=== PATIENT | female | born 1980 | race African-American/Black ===

== ENCOUNTER 2018-01-13 17:42 | Emergency (ER) | payer MEDICAID ==
[~2018-01-13] VITALS: Ht 170.2 cm; Wt 70.3 kg
[~2018-01-13 17:42] MED LIST: CYCLOBENZAPRINE10 MG ORAL; IBUPROFEN600 MG ORAL; KEFLEX500 MG ORAL; ZOFRAN8 MG ORAL
[2018-01-13] MEDS ORDERED: AMOXIL250 MG ORAL (17:53)
[2018-01-13 18:06] VITALS: BP 126/82
[2018-01-13] MEDS ORDERED: Bacitracin Oint UD TOPIC ONE (18:30)
[2018-01-13 19:41] VITALS: BP 126/82
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
[2018-01-13] MEDS ORDERED: LIDODERM700 M1 TOPIC (19:44)
[2018-01-13] MEDS ORDERED: BACITRACIN-P28.35 GM TP (19:44)
[2018-01-13] MEDS ORDERED: ROBAXIN500 MG PO (19:44)
[2018-01-13] MEDS ORDERED: TYLENOL EXTRA500 MG ORAL (19:44)
--- NOTE | 2018-01-14 10:54 | Diagnostic Imaging Report ---
Indication: Finger pain Technique: 3 views of the left index finger Comparison: none Findings: No acute fractures. No dislocations. The joint spaces are preserved. No radiopaque foreign body Impression: Negative
--- NOTE | 2018-01-14 10:55 | Diagnostic Imaging Report ---
Indications: Left humerus pain Technique: Two views of the left humerus Comparison: None Findings: No acute fractures. No dislocations. The joint spaces are preserved. No radiopaque foreign body Impression: Negative
== END 2018-01-13 19:41 | disposition home or self-care (01) ==
LOC: EMR 18:25
DX: S16.1XXA Strain of muscle, fascia and tendon at neck level, initial encounter (principal); S50.02XA Contusion of left elbow, initial encounter; S40.022A Contusion of left upper arm, initial encounter; S10.81XA Abrasion of other specified part of neck, initial encounter; S10.91XA Abrasion of unspecified part of neck, initial encounter; V43.52XA Car driver injured in collision with other type car in traffic accident, initial encounter; Y92.410 Unspecified street and highway as the place of occurrence of the external cause; M62.838 Other muscle spasm
CPT/HCPCS: 99284

== ENCOUNTER 2018-03-15 12:34 | Emergency (ER) | payer MEDICAID ==
[~2018-03-15] VITALS: Ht 172.7 cm; Wt 72.6 kg
[~2018-03-15 12:34] MED LIST changes: +AMOXIL250 MG ORAL; +BACITRACIN-P28.35 GM TP; +LIDODERM700 M1 TOPIC; +ROBAXIN500 MG PO; +TYLENOL EXTRA500 MG ORAL
[2018-03-15] MEDS ORDERED: IRON325 M1 PO (12:46)
[2018-03-15 12:53] VITALS: BP 122/81
[2018-03-15] MEDS ORDERED: Naproxen 500mg tab ORAL ONE (13:15)
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
[2018-03-15] MEDS ORDERED: LIDOCAINE HC28.35 GM TP (14:02)
[2018-03-15] MEDS ORDERED: ROBAXIN500 MG PO (14:02)
[2018-03-15] MEDS ORDERED: NAPROXEN500 M1 ORAL (14:02)
[2018-03-15 14:15] VITALS: BP 122/81
== END 2018-03-15 14:15 | disposition home or self-care (01) ==
LOC: EMR 13:19
DX: M54.5 Low back pain (principal)
CPT/HCPCS: 99283

== ENCOUNTER 2018-05-18 19:53 | Emergency (ER) | payer MEDICAID ==
[~2018-05-18] VITALS: Ht 172.7 cm; Wt 72.1 kg
[~2018-05-18 19:53] MED LIST changes: +IRON325 M1 PO; +LIDOCAINE HC28.35 GM TP; +NAPROXEN500 M1 ORAL
[2018-05-18] MEDS ORDERED: NKM (19:58)
[2018-05-18 20:00] VITALS: BP 138/86
--- NOTE | 2018-05-18 20:23 | Emergency Room Report ---
History of Present Illness General Chief Complaint: Generalized Weakness Source: Patient Present Illness HPI Patient presents with several days of feeling unsteady on her feet. She feels very tired and run down. She's been told she has anemia. In addition to that she's been having some fevers. Her daughter recently was treated for middle ear infection. She denies any nausea vomiting diarrhea dysuria. Her last period was abnormal. She had two menstruations in the month. She stopped bleeding on May 15. Her menstruation was lite. Occasionally her menstruations have been heavy. She's not taking her medication for her anemia. The patient started new job. It's 6 days a week. 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 She states it's hot where she works. It's been stressful as she's working a tremendous amount. She has insomnia and gets about 2 hours of sleep. She has taken Motrin PM without help. At work she felt transiently off balance yesterday. The patient denies chest pain, dyspnea, edema, calf swelling. No ear pain. She's recently tested for diabetes which was excluded. Lives with daughter and boyfriend. No violence or abuse. She feels safe. Not know if thyroid abnormal. Allergies: Coded Allergies: No Known Allergies (Unverified , 08/21/12) Patient History Past Medical History: see triage record Social History: Reports: alcohol use - last January 19; Denies: smoking, drug use Social History Narrative working, has daughter Last Menstrual Period: 05/09/18 Reviewed Nursing Documentation: PMH: Agreed; PSxH: Agreed Nursing Documentation-PM Past Medical History: No History, Except For Hx Cardiac Problems: No - anemia Review of Systems All Other Systems: negative except mentioned in HPI Physical Exam Vital Signs Date Time Temp Pulse Resp B/P (MAP) Pulse Ox O2 Delivery O2 Flow Rate FiO2 05/18/18 19:55 98.1 69 18 140/90 99 Room Air Sp02 EP Interpretation: reviewed, normal General Appearance: well appearing, no apparent distress, GCS 15 Head: normocephalic Eyes: bilateral eye normal inspection, bilateral eye PERRL ENT: moist mucus membranes Neck: supple, thyroid normal Respiratory: lungs clear, normal breath sounds Cardiovascular #1: regular rate, rhythm Cardiovascular #2: 2+ radial (R) Gastrointestinal: normal inspection, normal bowel sounds, non tender, no mass, non-distended Genitourinary: no CVA tenderness Musculoskeletal: back normal, gait/station normal, normal range of motion Neurologic: alert, oriented x3, power plant installer III-XII nml as tested - grossly, motor strength/tone normal, DTRs symmetric, sensory intact, cerebellar normal, normal gait, speech normal Psychiatric: mood/affect normal - slight depresion, no suicidal/homicidal ideation Skin: warm/dry, other - min pallor Medical Decision Making Diagnostic Impression: Primary Impression: UTI (urinary tract infection) Qualified Codes: N30.00 - Acute cystitis without hematuria Additional Impressions: Hypokalemia Stress ER Course Patient presents with dizziness and fevers. Differential includes viral syndrome, anemia, dehydration, middle ear infection amongst others. She'll be evaluated with labs which will include test and thyroid function tests. She'll be treated with IV hydration. The fact her daughter was ill suggests possible infectious source. Based on exam and VS, doubt PE. Labs with normal WBC. H/H slightly low. K low. UA with pyuria. When told about the results, she states her potassium is usually low. Denies diuretics. States does eat bananas. Potassium and macrobid given. Discussed with patient regarding stress and insomnia. Improved with treatment. Patient stable for outpatient observation and treatment. Laboratory Tests Test 05/18/18 20:42 White Blood Count 7.5 K/UL (4.8-10.8) Red Blood Count 4.22 M/UL (4.20-5.40) Hemoglobin 9.6 G/DL (12.0-16.0) L Hematocrit 31.9 % (37.0-47.0) L Mean Corpuscular Volume 76 FL (80-99) L Mean Corpuscular Hemoglobin 22.8 PG (27.0-31.0) L Mean Corpuscular Hemoglobin Concent 30.2 G/DL (32.0-36.0) L Red Cell Distribution Width 15.2 % (11.6-14.8) H Platelet Count 237 K/UL (150-450) Mean Platelet Volume 8.0 FL (6.5-10.1) Neutrophils (%) (Auto) 63.1 % (45.0-75.0) Lymphocytes (%) (Auto) 28.2 % (20.0-45.0) Monocytes (%) (Auto) 6.5 % (1.0-10.0) Eosinophils (%) (Auto) 1.4 % (0.0-3.0) Basophils (%) (Auto) 0.8 % (0.0-2.0) Urine Color Yellow Urine Appearance Slightly cloudy Urine pH 5 (4.5-8.0) Urine Specific [place] 1.025 (1.005-1.035) Urine Protein 1+ (NEGATIVE) H Urine Glucose (UA) Negative (NEGATIVE) Urine Ketones Negative (NEGATIVE) Urine Blood 3+ (NEGATIVE) H Urine Nitrite Negative (NEGATIVE) Urine Bilirubin Negative (NEGATIVE) Urine Urobilinogen Normal MG/DL (0.0-1.0) Urine Leukocyte Esterase 3+ (NEGATIVE) H Urine RBC 2-4 /HPF (0 - 2) H Urine WBC 20-30 /HPF (0 - 2) H Urine Squamous Epithelial Cells Moderate /LPF (NONE/OCC) H Urine Bacteria Few /HPF (NONE) Urine HCG, Qualitative Negative (NEGATIVE) Sodium Level 138 MMOL/L (136-145) Potassium Level 3.1 MMOL/L (3.5-5.1) L Chloride Level 103 MMOL/L (98-107) Carbon Dioxide Level 28 MMOL/L (21-32) Anion Gap 7 mmol/L (5-15) Blood Urea Nitrogen 10 mg/dL (7-18) Creatinine 0.9 MG/DL (0.55-1.30) Estimate Glomerular Filtration Rate > 60 mL/min (>60) Glucose Level 93 MG/DL (74-106) Calcium Level 8.7 MG/DL (8.5-10.1) Total Bilirubin 0.1 MG/DL (0.2-1.0) L Aspartate Amino Transferase (AST) 21 U/L (15-37) Alanine Aminotransferase (ALT) 14 U/L (12-78) Alkaline Phosphatase 62 U/L (46-116) Total Protein 8.9 G/DL (6.4-8.2) H Albumin 3.6 G/DL (3.4-5.0) Globulin 5.3 g/dL Albumin/Globulin Ratio 0.7 (1.0-2.7) L Lipase 96 U/L (73-393) Thyroid Stimulating Hormone (TSH) 1.285 uiU/mL (0.358-3.740) Last Vital Signs Date Time Temp Pulse Resp B/P (MAP) Pulse Ox O2 Delivery O2 Flow Rate FiO2 05/18/18 22:08 98.1 72 18 138/86 99 Room Air Status: improved Disposition: HOME, SELF-CARE Condition: Improved Scripts Potassium Chloride* (K-DUR*) 20 Meq Tab.er.prt 20 MEQ ORAL DAILY, #7 TAB 0 Refills Prov: Aurelio Topete MD 05/18/18 Nitrofurantoin Monohyd/M-Cryst* (MACROBID 100 MG*) 100 Mg Capsule 100 MG ORAL EVERY 12 HOURS, #14 CAP Prov: Aurelio Topete MD 05/18/18 Aurelio Topete MD May 18, 2018 20:23
[2018-05-18 20:53] LABS: APPEARANCE,URINE SLIGHTLY CLOUDY; BILIRUBIN, URINE NEGATIVE (NEGATIVE); GLUCOSE, URINE (UA) NEGATIVE (NEGATIVE); KETONES,URINE NEGATIVE (NEGATIVE); LEUKOCYTE ESTERASE ,URINE 3+ (NEGATIVE); NITRITE,URINE NEGATIVE (NEGATIVE); PH,URINE 5 (4.5-8.0); PROTEIN,URINE 1+ (NEGATIVE); UROBILINOGEN,URINE NORMAL MG/DL (0.0-1.0)
[2018-05-18 20:56] LABS: BASOPHILS % (AUTO) 0.8 % (0.0-2.0); EOSINOPHILS % (AUTO) 1.4 % (0.0-3.0); HEMATOCRIT 31.9 % (37.0-47.0); HEMOGLOBIN 9.6 G/DL (12.0-16.0); LYMPHOCYTES % (AUTO) 28.2 % (20.0-45.0); MEAN CORPUSCULAR VOLUME 76 FL (80-99); MONOCYTES % (AUTO) 6.5 % (1.0-10.0); NEUTROPHILS % (AUTO) 63.1 % (45.0-75.0); PLATELET COUNT 237 K/UL (150-450); RED BLOOD COUNT 4.22 M/UL (4.20-5.40); RED CELL DISTRIBUTION WIDTH 15.2 % (11.6-14.8); WHITE BLOOD COUNT 7.5 K/UL (4.8-10.8)
[2018-05-18 20:57] LABS: COLOR,URINE YELLOW
[2018-05-18 21:10] LABS: ANION GAP 7 mmol/L (5-15); BLOOD UREA NITROGEN 10 mg/dL (7-18); CALCIUM 8.7 MG/DL (8.5-10.1); CARBON DIOXIDE 28 MMOL/L (21-32); CHLORIDE 103 MMOL/L (98-107); CREATININE 0.9 MG/DL (0.55-1.30); POTASSIUM 3.1 MMOL/L (3.5-5.1); SODIUM 138 MMOL/L (136-145)
[2018-05-18 21:14] LABS: ALANINE AMINOTRANSFERASE 14 U/L (12-78); ALBUMIN 3.6 G/DL (3.4-5.0); ALBUMIN/GLOBULIN RATIO 0.7 (1.0-2.7); ALKALINE PHOSPHATASE 62 U/L (46-116); ASPARTATE AMINO TRANSFERASE 21 U/L (15-37); BILIRUBIN,TOTAL 0.1 MG/DL (0.2-1.0)
[2018-05-18] MEDS ORDERED: POTASSIUM CHLO20 ME1 ORAL (21:49)
[2018-05-18] MEDS ORDERED: NITROFURANTOIN100 M2 ORAL (21:49)
[2018-05-18 22:08] VITALS: BP 138/86
== END 2018-05-18 22:08 | disposition home or self-care (01) ==
LOC: EMR 20:30
DX: N39.0 Urinary tract infection, site not specified (principal); E87.6 Hypokalemia; F43.9 Reaction to severe stress, unspecified; R42 Dizziness and giddiness; D64.9 Anemia, unspecified
CPT/HCPCS: 36415; 80053; 81003; 81025; 83690; 84443; 85025; 87086; 96360; 99284; J8499

== ENCOUNTER 2019-07-11 12:54 | Emergency (ER) | payer SELFPAY ==
[~2019-07-11] VITALS: Ht 172.7 cm; Wt 70.3 kg
[~2019-07-11 12:54] MED LIST changes: +NITROFURANTOIN100 M2 ORAL; +NKM; +POTASSIUM CHLO20 ME1 ORAL
[2019-07-11 13:18] VITALS: BP 114/73
--- NOTE | 2019-07-11 13:18 | NUR ---
ED Nurse Note: PAtient ambulated into the ER with a c/o bodyaches, fever and right side head pain since yesterday. Patient states pain 10/10. Patient is aaox4 on room air with stable vital signs.
[2019-07-11 13:50] LABS: HEMATOCRIT 28.5 % (37.0-47.0); HEMOGLOBIN 8.6 G/DL (12.0-16.0); MEAN CORPUSCULAR VOLUME 69 FL (80-99); PLATELET COUNT 160 K/UL (150-450); RED BLOOD COUNT 4.12 M/UL (4.20-5.40); RED CELL DISTRIBUTION WIDTH 14.6 % (11.6-14.8); WHITE BLOOD COUNT 4.5 K/UL (4.8-10.8)
[2019-07-11 13:51] LABS: APPEARANCE,URINE CLEAR; BILIRUBIN, URINE NEGATIVE (NEGATIVE); COLOR,URINE PALE YELLOW; GLUCOSE, URINE (UA) NEGATIVE (NEGATIVE); KETONES,URINE NEGATIVE (NEGATIVE); LEUKOCYTE ESTERASE ,URINE 3+ (NEGATIVE); NITRITE,URINE NEGATIVE (NEGATIVE); PH,URINE 6 (4.5-8.0); PROTEIN,URINE 1+ (NEGATIVE); UROBILINOGEN,URINE NORMAL MG/DL (0.0-1.0)
[2019-07-11 14:04] LABS: ANION GAP 12 mmol/L (5-15); BLOOD UREA NITROGEN 6 mg/dL (7-18); CALCIUM 8.1 MG/DL (8.5-10.1); CARBON DIOXIDE 24 MMOL/L (21-32); CHLORIDE 101 MMOL/L (98-107); CREATININE 0.9 MG/DL (0.55-1.30); POTASSIUM 3.1 MMOL/L (3.5-5.1); SODIUM 137 MMOL/L (136-145)
[2019-07-11 14:11] LABS: ALANINE AMINOTRANSFERASE 16 U/L (12-78); ALBUMIN 3.6 G/DL (3.4-5.0); ALBUMIN/GLOBULIN RATIO 0.8 (1.0-2.7); ALKALINE PHOSPHATASE 46 U/L (46-116); ASPARTATE AMINO TRANSFERASE 21 U/L (15-37); BILIRUBIN,TOTAL 0.3 MG/DL (0.2-1.0)
--- NOTE | 2019-07-11 14:23 | Emergency Room Report ---
History of Present Illness General Chief Complaint: Flu Like Symptoms Source: Patient, Medical Record Present Illness HPI 39-year-old female complaining of sore throat, headache, body aches, fever, cough since yesterday. Pain is a 10 out of 10, sore in quality. Son is also sick with similar symptoms. Did not receive a flu shot. No recent travel. Patient states that she has been getting sick frequently for the past 2 months. Allergies: Coded Allergies: No Known Allergies (Unverified , 08/21/12) Patient History Past Medical History: other - anemia Past Surgical History: none Social History: Denies: smoking, alcohol use, drug use Now: No Nursing Documentation-[facility] Past Medical History: No History, Except For Hx Cardiac Problems: No - anemia Review of Systems All Other Systems: negative except mentioned in HPI Physical Exam Vital Signs Date Time Temp Pulse Resp B/P (MAP) Pulse Ox O2 Delivery O2 Flow Rate FiO2 07/11/19 12:59 100.2 116 18 114/73 (87) 98 Room Air Sp02 EP Interpretation: reviewed, normal ENT: hearing grossly normal, normal pharynx, no angioedema, normal voice Respiratory: chest non-tender, lungs clear, normal breath sounds, speaking full sentences Cardiovascular #1: regular rate, rhythm, no edema Gastrointestinal: normal inspection, non tender, soft, no mass Musculoskeletal: back normal, normal range of motion, calf tenderness, gait/ station normal, non-tender Neurologic: alert, motor strength/tone normal, oriented x3, sensory intact, responsive, speech normal Skin: no rash, warm/dry Medical Decision Making PA Attestation This patient was seen under the direct supervision of Dr. Rodriguez, who directed all aspects of care and diagnostic interpretation. Diagnostic Impression: Primary Impression: Influenza Additional Impressions: UTI (urinary tract infection) Hypokalemia Anemia ER Course ED course HPI: 39-year-old female complaining of sore throat, headache, body aches, fever, cough since yesterday. Pain is a 10 out of 10, sore in quality. Son is also sick with similar symptoms. Did not receive a flu shot. No recent travel. Patient states that she has been getting sick frequently for the past 2 months. Orders/ Interventions: Patient given acetaminophen for pain and fever. Patient given potassium 40MEQ PO for hypokalemia. CBC showed anemia, hemoglobin 8.6. CMP showed hypokalemia potassium 3.1, severe acidosis, alkalosis, renal failure, or liver disease. Lipase showed no evidence of acute pancreatitis. UA showed UTI. Urine test was negative. Flu swab positive for influenza B. No evidence of acute cardiopulmonary disease on chest x-ray. Disposition: Patient discharged with prescription for Tamiflu, Keflex and iron pills. Increase oral hydration and rest. At this time pt. is stable for d/c to home. Will provide printed patient care instructions, and any necessary prescriptions. Care plan and follow up instructions have been discussed with the patient prior to discharge. Please note that this Emergency Department Report was dictated using [employer] technology software, occasionally this can lead to erroneous entry secondary to interpretation by the dictation equipment. Laboratory Tests Test 07/11/19 13:35 07/11/19 13:40 White Blood Count 4.5 K/UL (4.8-10.8) L Red Blood Count 4.12 M/UL (4.20-5.40) L Hemoglobin 8.6 G/DL (12.0-16.0) L Hematocrit 28.5 % (37.0-47.0) L Mean Corpuscular Volume 69 FL (80-99) L Mean Corpuscular Hemoglobin 21.0 PG (27.0-31.0) L Mean Corpuscular Hemoglobin Concent 30.4 G/DL (32.0-36.0) L Red Cell Distribution Width 14.6 % (11.6-14.8) Platelet Count 160 K/UL (150-450) Mean Platelet Volume 7.3 FL (6.5-10.1) Neutrophils (%) (Auto) % (45.0-75.0) Lymphocytes (%) (Auto) % (20.0-45.0) Monocytes (%) (Auto) % (1.0-10.0) Eosinophils (%) (Auto) % (0.0-3.0) Basophils (%) (Auto) % (0.0-2.0) Differential Total Cells Counted 100 Neutrophils % (Manual) 60 % (45-75) Lymphocytes % (Manual) 27 % (20-45) Monocytes % (Manual) 13 % (1-10) H Eosinophils % (Manual) 0 % (0-3) Basophils % (Manual) 0 % (0-2) Band Neutrophils 0 % (0-8) Platelet Estimate Adequate Platelet Morphology Normal Hypochromasia 1+ Anisocytosis 1+ Microcytosis 1+ Sodium Level 137 MMOL/L (136-145) Potassium Level 3.1 MMOL/L (3.5-5.1) L Chloride Level 101 MMOL/L (98-107) Carbon Dioxide Level 24 MMOL/L (21-32) Anion Gap 12 mmol/L (5-15) Blood Urea Nitrogen 6 mg/dL (7-18) L Creatinine 0.9 MG/DL (0.55-1.30) Estimate Glomerular Filtration Rate > 60 mL/min (>60) Glucose Level 94 MG/DL (74-106) Calcium Level 8.1 MG/DL (8.5-10.1) L Total Bilirubin 0.3 MG/DL (0.2-1.0) Aspartate Amino Transferase (AST) 21 U/L (15-37) Alanine Aminotransferase (ALT) 16 U/L (12-78) Alkaline Phosphatase 46 U/L (46-116) Total Protein 8.3 G/DL (6.4-8.2) H Albumin 3.6 G/DL (3.4-5.0) Globulin 4.7 g/dL Albumin/Globulin Ratio 0.8 (1.0-2.7) L Urine Color Pale yellow Urine Appearance Clear Urine pH 6 (4.5-8.0) Urine Specific [place] 1.015 (1.005-1.035) Urine Protein 1+ (NEGATIVE) H Urine Glucose (UA) Negative (NEGATIVE) Urine Ketones Negative (NEGATIVE) Urine Blood 3+ (NEGATIVE) H Urine Nitrite Negative (NEGATIVE) Urine Bilirubin Negative (NEGATIVE) Urine Urobilinogen Normal MG/DL (0.0-1.0) Urine Leukocyte Esterase 3+ (NEGATIVE) H Urine RBC 5-10 /HPF (0 - 2) H Urine WBC 10-15 /HPF (0 - 2) H Urine Squamous Epithelial Cells Many /LPF (NONE/OCC) H Urine Bacteria Few /HPF (NONE) Urine HCG, Qualitative Negative (NEGATIVE) Microbiology Date/Time Source Procedure Growth Status 07/11/19 13:35 Nasopharynx - Final Complete 07/11/19 13:35 Nasopharynx - Final Complete Chest X-Ray Diagnostic Results Chest X-Ray Diagnostic Results : Chest X-Ray Ordered: Yes # of Views/Limited/Complete: 1 View EP Interpretation: Yes RONALD Xray: Interpretation reviewed, by supervising MD Interpretation: no consolidation, no effusion, no acute cardiopulmonary disease Impression: No acute disease Electronically Signed by: Liam Nesbitt Text Procedure: XRAY Chest 1v Indication: Cough Comparison: None A single view chest radiograph was obtained. Findings: Cardiomediastinal appearance is within normal limits for age. The lungs are clear. Pulmonary vascularity is appropriate. The diaphragmatic contour is smooth and costophrenic angles are sharp. No pleural effusions are identified. The bones are unremarkable. Impression: No acute findings Dictated By: Gaston Martínez MD Electronically Signed By: Gaston Martínez MD Signed Date/Time 07/11/19 9873 CC: Liam Kaur Last Vital Signs Date Time Temp Pulse Resp B/P (MAP) Pulse Ox O2 Delivery O2 Flow Rate FiO2 07/11/19 13:18 100.2 82 18 114/73 98 Room Air Disposition: HOME, SELF-CARE Condition: Stable Scripts Ferrous Sulfate (Ferrous Sulfate) 325 Mg Tablet 1 TAB ORAL DAILY, #30 TAB 0 Refills Prov: Liam Kaur 07/11/19 Cephalexin* (KEFLEX*) 500 Mg Tablet 500 MG ORAL EVERY 12 HOURS for 7 Days, #14 CAP Prov: Liam Kaur 07/11/19 Oseltamivir Phosphate (Tamiflu) 75 Mg Capsule 75 MG ORAL TWICE A DAY for 5 Days, #10 CAP Prov: Liam Kaur 07/11/19 Referrals: NOT CHOSEN IPA/,REFERRING (PCP) Patient Instructions: Influenza, Adult, [id number] Additional Instructions: Follow-up with PCP in 2 days or return to ED if worsening symptoms, new symptoms , or sudden change in condition. Liam Kaur Jul 11, 2019 14:23
--- NOTE | 2019-07-11 14:28 | Diagnostic Imaging Report ---
Indication: Cough Comparison: None A single view chest radiograph was obtained. Findings: Cardiomediastinal appearance is within normal limits for age. The lungs are clear. Pulmonary vascularity is appropriate. The diaphragmatic contour is smooth and costophrenic angles are sharp. No pleural effusions are identified. The bones are unremarkable. Impression: No acute findings
[2019-07-11] MEDS ORDERED: CEPHALEXIN500 M1 ORAL (14:41)
[2019-07-11] MEDS ORDERED: TAMIFLU75 MG ORAL (14:41)
[2019-07-11] MEDS ORDERED: FEOSOL1 TAB ORAL (14:42)
[2019-07-11 14:55] VITALS: BP 114/73
--- NOTE | 2019-07-11 14:55 | NUR ---
ER DISCHARGE NOTE: Patient is cleared to be discharged per ERMD , pt is aox4, on room air, with stable vital signs. pt was given dc and prescription instructions, pt was able to verbalize understanding, pt id band and iv site removed without complications. pt is able to ambulate with steady gait. pt took all belongings.
== END 2019-07-11 14:55 | disposition home or self-care (01) ==
LOC: EMR 13:15
DX: J11.1 Influenza due to unidentified influenza virus with other respiratory manifestations (principal); E87.6 Hypokalemia; D64.9 Anemia, unspecified
CPT/HCPCS: 36415; 71045; 80053; 81001; 81025; 85007; 85025; 86710; 87086; 99284